=== PATIENT | female | born 1995 | race Caucasian/White ===

== ENCOUNTER 2016-12-13 16:39 | Emergency (ER) | payer OTHER ==
[~2016-12-13] VITALS: Wt 54.0 kg
--- NOTE | 2016-12-13 19:25 | ERD ---
ER Documentation Chief Complaint Date/Time DATE: 12/13/16 TIME: 19:22 Chief Complaint LEFT RING FINGER LACERATION FROM KNIFE 2 HRS HAND ALMOND BLANCHER HPI This is a 21-year-old female who presents to the ER with a laceration to her left ring finger that occurred about 2 hours prior to arrival. This happened at work, she cut herself with a knife. Patient does admit to fingertip numbness. She denies any hand pain or wrist pain. Bleeding was controlled before arriving to the ER. Patient has a recent tetanus shot. ROS 12 point review of systems was done, all negative except per HPI. Medications Home Meds No Active Prescriptions or Reported Meds Allergies Allergies: Coded Allergies: No Known Allergy (Unverified , 05/17/13) PMhx/Soc Medical and Surgical Hx: pt denies Medical Hx, pt denies Surgical Hx History of Surgery: No Anesthesia Reaction: No Hx Neurological Disorder: No Hx Respiratory Disorders: No Hx Cardiac Disorders: No Hx Psychiatric Problems: No Hx Miscellaneous Medical Probl: No Hx Alcohol Use: No Hx Substance Use: No Hx Tobacco Use: No Smoking Status: Never smoker Physical Exam Vitals Vital Signs Date Time Temp Pulse Resp B/P Pulse Ox O2 Delivery O2 Flow Rate FiO2 12/13/16 16:50 98.2 70 21 124/76 98 Physical Exam GENERAL: The patient is well developed and appropriate for usual state of health , in no apparent distress. HEENT: Atraumatic. CHEST: Clear to auscultation bilaterally. There are no rales, wheezes or rhonchi. HEART: Regular rate and rhythm. No murmurs, clicks, rubs or gallops. EXTREMITIES: left 4th digit: small 1cm linear superficial laceration. DTS and DTP are intact. normal range of motion of all joints. no hand pain, no wrist pain. NEURO: Alert and oriented. Procedures/MDM Laceration Repair by me: Anesthesia: 1% lidocaine locally Location: distal 4th digit Tendon/Joint/Nerves: No injury Foreign body: None detected after copious irrigation and exploration Technique: dernadionisio Complexity: No subcutaneous sutures/mucosal repair/ edge excision Post Closure Length: 1 cm Patient's bleeding was easily controlled in the department and there is no indication of anemia. No evidence of compartment syndrome, neurologic injury, vascular injury, open joint, tendon laceration, or foreign body. Patient is appropriate for outpatient follow up. 48 hour wound check. Scar minimization instructions given. Departure Diagnosis: Primary Impression: Laceration Condition: Stable TATYANA VARELA Dec 13, 2016 19:24
[2016-12-13 20:20] VITALS: BP 120/78; PULSE 72; RESP 21; TEMP 98.2
== END 2016-12-13 20:00 | disposition home or self-care (01) ==
LOC: FTE 16:39
DX: S61.215A Laceration without foreign body of left ring finger without damage to nail, initial encounter (principal); W26.0XXA Contact with knife, initial encounter; Y92.89 Other specified places as the place of occurrence of the external cause
CPT/HCPCS: 12001; Z7502